=== PATIENT | female | born 1940 | race Caucasian/White ===

== ENCOUNTER 2017-03-14 23:37 | Inpatient (IN) | payer MEDICARE ==
[~2017-03-14] VITALS: Ht 157.5 cm; Wt 104.8 kg
[~2017-03-14 23:37] MED LIST: ALBUTEROL2.5 MG/0.1 IH; AMITRIPTYLINE100 MG PO; ASPIR 8181 MG PO; ATORVASTATIN CA40 MG PO; AVAPRO 150 MG150 M1 PO; BACLOFEN 10MG T10 M1 PO; CALCIUM 600 +1 EAC1 PO; CARVEDILOL12.5 MG PO; CELEBREX 200 M200 MG PO; CHLORTHALIDONE25 MG PO; CLONAZEPAM 0.50.5 M1 PO; CLONAZEPAM 1 MG1 M1 PO; CODITUSSIN AC473 ML PO; COLACE100 MG PO; CYMBALTA60 MG PO; DIGOXIN125 MCG PO; DOXYCYCLINE 10100 MG PO; EFFIENT10 MG PO; ELIQUIS5 MG PO; HYDROCODONE-APA1 TA1 PO; IMDUR 30 MG TAB30 M1 PO; LANOXIN 0.120.125 M1 PO; LOSARTAN POTAS100 MG PO; MUCINEX TA600 MG/TA2 PO; MUCINEX600 MG PO; MYSOLINE50 MG PO; PRAVASTATIN SOD10 MG PO; PREDNISONE 10 M10 MG PO; PRILOSEC 10MG C10 MG PO; PROZAC 20 MG20 M1 PO; PROZAC20 MG PO; PULMICORT0.5 MG/22 INH; Prozac; RISPERDAL M-TA0.5 MG PO; SINGULAIR 10 MG10 M1 PO; TORADOL 10 MG T10 MG PO; TRAMADOL 50 MG50 MG PO; VALIUM5 MG PO; VICODIN ES TAB1 EACH PO; ZPAK PO
[2017-03-14 23:38] VITALS: BP 133/51
[2017-03-15] VITALS (15 sets, daily range): BP systolic 72–156; BP diastolic 41–79
[2017-03-15 00:28] LABS: HEMATOCRIT 37.8 % (37.0-47.0); HEMOGLOBIN 12.6 gm/dL (12.0-15.0); MCH 28.7 pg (26.0-34.0); MCHC 33.3 g/dL (28.0-37.0); MCV 86.2 fL (80.0-100.0); MPV 9.5 fl. (7.2-11.1); NUCLEATED RBCS 0 /100WBC; PLATELET COUNT* 267 thou/uL (150-400); RBC 4.39 mil/uL (4.20-5.00); RDW-CV 14.2 % (10.5-14.5); WBC 26.8 thou/uL (4.0-11.0)
[2017-03-15 00:38] LABS: CALCIUM 8.1 mg/dL (8.5-10.1); CREATININE 1.1 mg/dL (0.6-1.3); POTASSIUM 3.4 mmol/L (3.5-5.1)
[2017-03-15 00:43] LABS: ALBUMIN 2.9 g/dL (3.4-5.0); TOTAL BILIRUBIN 0.5 mg/dL (<0.1-1.0); TOTAL PROTEIN 7.2 g/dL (6.4-8.2)
[2017-03-15 01:33] LABS: ABSOLUTE LYMPHOCYTES 8.3 thou/uL (0.8-5.3); ABSOLUTE MONOCYTES 0.5 thou/uL (0.0-1.2); PLATELET ESTIMATE ADEQUATE
[2017-03-15 01:34] LABS: ESR (SEDRATE) 65 mm/hr (0-30)
[2017-03-15 02:44] LABS: INFLUENZA A ANTIGEN None Detected (None Detect); INFLUENZA B ANTIGEN None Detected (None Detect)
[2017-03-15 03:08] LABS: BF RBC 343704 /mm3; TOTAL CELL COUNT 43223 /mm3
[2017-03-15 03:14] LABS: CLARITY CLOUDY; COLOR RED; TOTAL VOLUME 5 ml
[2017-03-15 03:54] LABS: BF LYMPHOCYTES 3 %; BF MONOCYTES 2 %; BF POLYS 95 %
[2017-03-15 03:55] LABS: SOURCE SYNOVIAL FLUID
[2017-03-15 04:14] LABS: URINE BILIRUBIN NEGATIVE (Negative); URINE BLOOD 3+ (Negative); URINE CLARITY CLEAR; URINE COLOR YELLOW; URINE GLUCOSE-RANDOM NEGATIVE (Negative); URINE KETONES NEGATIVE (Negative); URINE LEUKOCYTES-REFLEX NEGATIVE (Negative); URINE PROTEIN 1+ (Negative); URINE SPECIFIC GRAVITY 1.015 (1.005-1.030); URINE UROBILINOGEN 0.2 E.U./dl (0.2-1.0)
[2017-03-15 04:17] LABS: URINE NITRITE-REFLEX POSITIVE (Negative)
[2017-03-15 04:24] LABS: SQUAMOUS 0-3 Few /LPF (0-3); URINE WBC-REFLEX 0-5 Rare /HPF (0-5)
[2017-03-15 04:25] LABS: CASTS None Seen /LPF (None Seen); CRYSTALS None Seen /LPF (None Seen); MUCUS 0-3 Light strn/LPF (None Seen)
[2017-03-15 08:28] LABS: HEMATOCRIT 34.1 % (37.0-47.0); HEMOGLOBIN 11.4 gm/dL (12.0-15.0); MCH 28.7 pg (26.0-34.0); MCHC 33.4 g/dL (28.0-37.0); MCV 85.7 fL (80.0-100.0); MPV 9.9 fl. (7.2-11.1); RBC 3.97 mil/uL (4.20-5.00); RDW-CV 14.1 % (10.5-14.5); WBC 24.8 thou/uL (4.0-11.0)
[2017-03-15 08:34] LABS: CALCIUM 6.9 mg/dL (8.5-10.1); CREATININE 0.9 mg/dL (0.6-1.3)
[2017-03-15 08:38] LABS: ALBUMIN 2.4 g/dL (3.4-5.0); MAGNESIUM 1.5 mg/dL (1.8-2.4); PHOSPHORUS* 3.4 mg/dL (2.5-4.9); POTASSIUM 2.8 mmol/L (3.5-5.1); TOTAL BILIRUBIN 0.7 mg/dL (<0.1-1.0); TOTAL PROTEIN 6.2 g/dL (6.4-8.2)
--- NOTE | 2017-03-15 13:43 | EKG ---
[place] [address] ELECTROCARDIOGRAM REPORT Name: ABBY KOTHARI Room: [address] ADM IN .R.#: [id number] Admission: 03/15/17 Attend Phys: Franck Kenny MD Discharge: Date of : 40 Report #: [id number] THIS REPORT FOR: //name// [facility] ED Test Date: 2017-03-15 Test Time: 01:57:20 Pat Name: ABBY KOTHARI Department: Room: [address] Gender: F Saw Grinder: AJ : 1940 Requested By: Mariann Burroughs Order Number: [id number] MD: Da Johnson Measurements Intervals [place] Rate: 104 P: [place]: QRS: 76 QRSD: 95 T: QT: 416 QTc: 548 Interpretive Statements Atrial fibrillation Borderline repolarization abnormality Prolonged QT interval Compared to ECG 07/19/2016 17:41:38 Prolonged QT interval now present Electronically Signed On 03-15-2017 13:43:20 ASSOCIATE PROFESSOR OF GEOGRAPHY by Da Johnson [email or web address] <ELECTRONICALLY SIGNED> By: Da Johnson MD, [facility] 03/15/17 1343 0157 0157 Da Johnson MD, [facility] /EPI
[2017-03-15 14:31] LABS: TOTAL CELL COUNT >66000 /mm3
[2017-03-15 14:39] LABS: BF RBC 81675 /mm3
[2017-03-15 14:42] LABS: CLARITY TURBID; COLOR RED; TOTAL VOLUME 15 ml
[2017-03-15 14:57] LABS: BF LYMPHOCYTES 1 %; BF POLYS 99 %; BF TISSUE 25 /100 WBC
--- NOTE | 2017-03-15 15:28 | 2DMMODE ---
[place] [address] 2 D/M-MODE ECHOCARDIOGRAM Name: ABBY KOTHARI Room: [address] IN [facility]#: [id number] Admission: 03/15/17 Attend Phys: Franck Kenny, Discharge: Date of : 40 Date of Service: 03/15/17 1528 Report #: [id number] THIS REPORT FOR: //name// APPROVED REPORT Study performed: 03/15/2017 11:06:34 EXAM: Comprehensive 2D, Doppler, and color-flow Echocardiogram Patient Location: In-Patient Room #: 008 Status: routine BSA: 1.91 HR: 85 bpm BP: 106/52 mmHg Rhythm: Atrial Fibrillation Other Information Study Quality: Good Indications Dyspnea 2D Dimensions LVEF(%): 83.41 (>50%) IVSd: 10.10 (7-11mm) LVOT Diam: 21.74 (18-24mm) LVDd: 38.30 mm PWd: 10.45 (7-11mm) Ascending Ao: 31.06 (22-36mm) LVDs: 18.53 (25-40mm) Aortic Root: 34.25 mm Starr's LVEF: 83.41 % Volumes Left Atrial Volume (Systole) LA ESV Index: 40.50 mL/m2 Aortic Valve AoV Peak Irineo.: 1.71 m/s AO Peak Gr.: 11.76 mmHg LVOT Max P.68 mmHg AO Mean Gr.: 6.59 mmHg LVOT Mean P.51 mmHg LVOT Max V: 0.82 m/s AO V2 VTI: 31.94 cm LVOT Mean V: 0.58 m/s CECELIA (VTI): 1.95 cm2 LVOT V1 VTI: 16.76 cm Mitral Valve MV Decel. Time: 195.30 [place] [address] 2 D/M-MODE ECHOCARDIOGRAM Name: ABBY KOTHARI Room: [address] IN [facility].#: [id number] Admission: 03/15/17 Attend Phys: Franck Kenny, Discharge: Date of : 40 Date of Service: 03/15/17 1528 Report #: [id number] MV PHT: 56.64 ms MVA (PHT): 3.88 cm2 TDI Medial E' Irineo.: 0.11 m/s Lateral E' Irineo.: 0.14 m/s Pulmonary Valve PV Peak Irineo.: 1.04 m/s PV Peak Gr.: 4.32 mmHg Tricuspid Valve TR Peak Gr.: 27.39 mmHg RVSP: 32.00 mmHg Left Ventricle The left ventricle is normal size. There is normal LV segmental wall motion. There is normal left ventricular wall thickness. Left ventricular systolic function is normal. The left ventricular ejection fraction is within the normal range. LVEF is 60-65%. Transmitral Doppler flow pattern suggests restrictive physiology. Right Ventricle The right ventricle is normal size. The right ventricular systolic function is normal. Atria Left atrium is mildly dilated. The right atrium size is normal. Aortic Valve The Aortic valve is sclerotic. Aortic valve is not well visualized. No aortic regurgitation is present. At least Mild aortic stenosis. Mitral Valve The mitral valve is normal in structure. Mild mitral regurgitation. No evidence of mitral valve stenosis. Tricuspid Valve The tricuspid valve is normal in structure. Mild tricuspid regurgitation. The RVSP is 30-35 mmHg. Pulmonic Valve The pulmonary valve is normal in structure. There is no pulmonic [place] [address] 2 D/M-MODE ECHOCARDIOGRAM Name: ABBY KOTHARI Room: [address]#: [id number] Admission: 03/15/17 Attend Phys: Franck Kenny, Discharge: Date of : 40 Date of Service: 03/15/17 1528 Report #: [id number] Great Vessels The aortic root is normal in size. IVC is not well visualized. Pericardium There is no pericardial effusion. <Conclusion> The Aortic valve is sclerotic.Mild aortic stenosis. Aortic valve is not well visualized. No aortic regurgitation is present. Transmitral Doppler flow pattern suggests restrictive physiology. Left atrium is mildly dilated. LVEF is 60-65%. There is normal LV segmental wall motion. <ELECTRONICALLY SIGNED> By: Da Johnson MD, FACC 03/15/17 1528 1528 1528 Da Johnson MD, FACC /INF
[2017-03-15 15:30] LABS: SOURCE R KNEE
[2017-03-15 15:46] LABS: SOURCE L KNEE; SOURCE R KNEE
[2017-03-15 15:59] LABS: BF RBC 21197 /mm3; TOTAL CELL COUNT 104225 /mm3; TOTAL VOLUME 9.5 ml
[2017-03-15 16:07] LABS: CLARITY CLOUDY
[2017-03-15 16:08] LABS: BF MONOCYTES 8 %; BF POLYS 92 %; COLOR YELLOW
[2017-03-15 16:09] LABS: SOURCE KNEE FLUID
[2017-03-15] MEDS ORDERED: APAP650 PO (17:40)
[2017-03-16] VITALS: BP 101/41
[2017-03-16 04:00] VITALS: BP 136/75
[2017-03-16 05:10] LABS: HEMATOCRIT 34.7 % (37.0-47.0); HEMOGLOBIN 11.3 gm/dL (12.0-15.0); MCH 28.4 pg (26.0-34.0); MCHC 32.5 g/dL (28.0-37.0); MCV 87.4 fL (80.0-100.0); MPV 10.7 fl. (7.2-11.1); RBC 3.97 mil/uL (4.20-5.00); RDW-CV 14.7 % (10.5-14.5); WBC 23.8 thou/uL (4.0-11.0)
[2017-03-16 05:26] LABS: ALBUMIN 2.3 g/dL (3.4-5.0); CALCIUM 7.3 mg/dL (8.5-10.1); CREATININE 0.7 mg/dL (0.6-1.3); MAGNESIUM 2.4 mg/dL (1.8-2.4); POTASSIUM 3.7 mmol/L (3.5-5.1); TOTAL BILIRUBIN 1.1 mg/dL (<0.1-1.0); TOTAL PROTEIN 6.4 g/dL (6.4-8.2)
[2017-03-16 08:30] VITALS: BP 120/61
[2017-03-16 11:51] VITALS: BP 117/55
--- NOTE | 2017-03-16 11:56 | CON ---
[address] [address] CONSULTATION Name: ABBY KOTHARI Room: [address] IN .R.#: [id number] Admission: 03/15/17 Attend Phys: Franck Kenny MD Discharge: Date of : 40 Report #: [id number] THIS REPORT FOR: //name// CC: Franck Garcia DATE OF SERVICE: 03/15/2017 INFECTIOUS DISEASE CONSULTATION ATTENDING PHYSICIAN: Franck Kenny MD REASON FOR EVALUATION: Bilateral severe knee pain with hemorrhagic effusions, possible septic arthritis. HISTORY OF PRESENT ILLNESS: Chart reviewed, patient examined. This is a 76-year-old white female with apparent diagnosis of systemic lupus erythematosus, also has fibromyalgia who presented to emergency room with complaints of severe, 9/10 associated bilateral knee pain, which is spontaneous. She awoke, was unable to bear weight. Additionally, he had elevated temperatures, noted to be 102.3 on admission. Did undergo arthrocentesis, was found to have bloody fluid with 343,000 red cells and 43,000 white cells with differential including 95% polymorphonuclear. Cultures are pending. She denies any antecedent injury. She does state she has recent cold. Did take some Jeanette-Ace Plus. It is notable she is on Eliquis. At this point, she denies significant systemic illness. She has not had pulmonary or gastrointestinal related complaints. Appetite has been fair. She was empirically started on vancomycin. Cultures are pending. ALLERGIES: TO PENICILLINS, CEPHALOSPORINS, ERYTHROMYCIN, LISINOPRIL, DILTIAZEM. CURRENT MEDICATIONS: Include fluoxetine, digoxin, docusate sodium, clonazepam, primidone, amitriptyline, aspirin, budesonide inhalational, tramadol, ipratropium and albuterol inhaler, vancomycin, promethazine, p.r.n. analgesics, antiemetics, pantoprazole and montelukast. She is off Levophed; however, required low dose. PAST MEDICAL HISTORY: Systemic lupus erythematous, hypertension, fibromyalgia, atrial fibrillation and bilateral knee replacements. SOCIAL HISTORY: Nonsmoker. No ethanol. FAMILY HISTORY: Noncontributory. REVIEW OF SYSTEMS: [place] [address] CONSULTATION Name: ABBY KOTHARI Room: [address]#: [id number] Admission: 03/15/17 Attend Phys: Franck Kenny MD Discharge: Date of : 40 Report #: [id number] PHYSICAL EXAMINATION: GENERAL: She appears somewhat chronically ill. She is pleasant, alert and cooperative, in topf-ie-gdpyjakp distress, perhaps mildly undernourished. VITAL SIGNS: Temperature 98.5, pulse 80, respirations 23 and blood pressure 104/63. SKIN: Warm and dry. No rashes. HEENT: Unremarkable. NECK: Supple. LUNGS: Diminished breath sounds. HEART: Somewhat irregular. No appreciated murmur. ABDOMEN: Soft, nontender and nondistended. EXTREMITIES: Bilateral knees have evidence of effusion. There are some contused areas. They are tender to palpation. Decreased range of motion. GENITOURINARY: Deferred. RECTAL: Deferred. LABORATORY: Most recent studies: Sodium 137, potassium 2.8, chloride 101, bicarb is 31 and anion gap of 5. BUN and creatinine of 19 and 0.9. Glucose of 128. AST 155 and ALT of 119. Total protein of 6.2 and albumin of 2.3. Estimated GFR of 61. CBC: White count 24.8, H and H of 11.4 and 34.1, platelets of 237. Bilateral knee plain films show prosthesis, nothing for fracture or hardware loosening. Urinalysis: 0-5 white cells, greater than 30 bacteria. Lactic acid 1.9. Cultures pending. Gram stain showed no organisms. Influenza antigen was negative. CRP of 91.0. Sed rate of 65. ASSESSMENT: Bilateral knee hemarthrosis, seem too coincidental to have bilateral septic knees at this point. I suspected spontaneous hemorrhages led to significant amount of inflammation and pain. It is not unreasonable to continue empiric antimicrobial therapy at this point pending the cultures. Discussed with Orthopedic Surgery. Certainly hemarthrosis could explain the fevers. I do not find any other focal evidence of pyogenic infection at this point. We will monitor expectantly. Vancomycin should give us decent skin and soft tissue coverage as well as pulmonary. We will monitor expectantly in the Intensive Care Unit. We will follow. <ELECTRONICALLY SIGNED> By: Beny Castorena MD 03/16/17 1156 1244 1437Jochaz Castorena MD /nt
[2017-03-16 16:00] VITALS: BP 145/71
[2017-03-16 20:00] VITALS: BP 136/62
[2017-03-17] VITALS: BP 115/63
[2017-03-17 04:00] VITALS: BP 118/50
[2017-03-17 04:54] LABS: HEMATOCRIT 31.3 % (37.0-47.0); HEMOGLOBIN 10.5 gm/dL (12.0-15.0); MCHC 33.7 g/dL (28.0-37.0); MCV 86.1 fL (80.0-100.0); MPV 11.3 fl. (7.2-11.1); RBC 3.64 mil/uL (4.20-5.00); RDW-CV 14.8 % (10.5-14.5); WBC 19.8 thou/uL (4.0-11.0)
[2017-03-17 05:09] LABS: CREATININE 0.7 mg/dL (0.6-1.3); MAGNESIUM 2.1 mg/dL (1.8-2.4); POTASSIUM 3.5 mmol/L (3.5-5.1)
[2017-03-17 08:00] VITALS: BP 127/56
[2017-03-17 11:30] VITALS: BP 128/56
[2017-03-17 15:30] VITALS: BP 134/73
[2017-03-17 20:00] VITALS: BP 150/60
[2017-03-18] VITALS: BP 125/60
[2017-03-18 04:04] VITALS: BP 114/62
[2017-03-18 05:06] LABS: HEMATOCRIT 31.4 % (37.0-47.0); HEMOGLOBIN 10.5 gm/dL (12.0-15.0); MCH 29.3 pg (26.0-34.0); MCHC 33.6 g/dL (28.0-37.0); MCV 87.2 fL (80.0-100.0); MPV 10.5 fl. (7.2-11.1); RBC 3.6 mil/uL (4.20-5.00); RDW-CV 14.6 % (10.5-14.5); WBC 16.6 thou/uL (4.0-11.0)
[2017-03-18 05:18] LABS: CALCIUM 7.2 mg/dL (8.5-10.1); CREATININE 0.7 mg/dL (0.6-1.3); MAGNESIUM 1.9 mg/dL (1.8-2.4); POTASSIUM 3.4 mmol/L (3.5-5.1)
[2017-03-18 08:00] VITALS: BP 137/59
[2017-03-18 11:22] VITALS: BP 118/81
[2017-03-18 18:00] VITALS: BP 129/62
[2017-03-19 00:14] VITALS: BP 149/80
[2017-03-19 04:00] VITALS: BP 147/77
[2017-03-19 05:26] LABS: HEMATOCRIT 29.1 % (37.0-47.0); MCH 29.5 pg (26.0-34.0); MCHC 34.5 g/dL (28.0-37.0); MCV 85.3 fL (80.0-100.0); MPV 9.9 fl. (7.2-11.1); RBC 3.41 mil/uL (4.20-5.00); RDW-CV 14.4 % (10.5-14.5); WBC 14.2 thou/uL (4.0-11.0)
[2017-03-19 08:00] VITALS: BP 127/59
[2017-03-19 11:24] VITALS: BP 152/71
--- NOTE | 2017-03-19 12:22 | OP ---
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 SURGERY PERFORMED: Arthrotomy of the right and left knees with incisional debridement of synovium, pulsatile lavage irrigation, sharp dissection and curettage on both with length 20 cm along, width is 10 cm wide down to the bone. The patient did have intraoperative cultures as well on the right and the left knee. The patient had a poly exchange. SURGEON: Mansoor Torres DO BIG DATA DEVELOPER: Dr. Paulson. SECOND TAILOR'S AIDE: Dr. Nichole. ANESTHESIA: General anesthetic. The patient has been on timed antibiotics. GROSS FINDINGS: Prior to surgery, the patient correlated with previous aspiration showing strep pneumoniae in the synovial fluid. The patient had continued pain in both knee regions, right worse than the left. Intraoperative findings correlated with purulence in both knee regions, intact femoral and tibial component as well as patellar component. There was no other concerning signs except hypertrophic synovitis in both knees, right worse than left. PROCEDURE IN DETAIL: She was taken to the operating room and placed on table, given the benefit of general anesthetic. Well-padded tourniquet was placed on the right and the left legs. She underwent a Hibiclens and chlorhexidine prep and sterile draping for right and left knee surgeries. The patient did have a right and left knee extremity drape applied after she was prepped. A timeout was called for the right and left knee surgeries as both would be done simultaneously. At this point in time, the tourniquet was inflated to 250 mL mmHg on the left knee, none was placed on the right. Midline incisions were made on the right and left knee over the previous cicatrix with [place] 20[place] [address] OPERATIVE REPORT Name: SANIYAABBY E Room: [address] IN [facility]#: [id number] Admission: 03/15/17 Attend Phys: Franck Kenny MD Discharge: Date of : 40 Report #: [id number] scalpel through both skin and subcutaneous tissues. A second medial parapatellar capsular incision was made with a new knife blade on each knee. We used separate instruments for each right and the left knees and also separate Bovie suctions, etc. At this point in time, hemostasis was maintained on the right knee. After capsular incision, synovectomy was performed on both sides. Cultures were taken on the right and left knees. At this point in time, the patient's polyethylene was removed on the right and the left knee. Surgery now continued with copious irrigation of normal saline pulsatile lavage irrigation on the right and the left knee, greater than 3000 mL on each. At this point in time, a new polyethylene was seated into the right tibia tray, was a 12.5; on the left with 10. I attempted a 12.5, but the undersurface prong broke off, so I had to put a 10 in with still a stable knee. Once the polyethylene was placed, we placed antibiotic vancomycin and gentamicin beads in the gutters on the right and the left knee regions. The patient then had the capsule closed with 1 Vicryl, 1 TiCron in a [id number]-[id number] fashion. The patient's subcutaneous tissues with 2-0 Monocryl, skin staple closed. Mepilex, soft roll, Ford wrap dressing was applied on the right and the left knee. The patient was transferred off the table, taken to recovery in stable condition. He tolerated the surgery well. <ELECTRONICALLY SIGNED> By: Mansoor Torres DO 03/19/17 1222 1555 1707Mansoor Torres DO /manjula
[2017-03-19 16:27] VITALS: BP 153/67
[2017-03-19 20:10] VITALS: BP 125/41
[2017-03-20 00:51] VITALS: BP 115/54
[2017-03-20 04:00] VITALS: BP 101/47
[2017-03-20 05:20] LABS: HEMOGLOBIN 9.3 gm/dL (12.0-15.0); MCH 28.9 pg (26.0-34.0); MCHC 33.4 g/dL (28.0-37.0); MCV 86.6 fL (80.0-100.0); MPV 9.3 fl. (7.2-11.1); RBC 3.23 mil/uL (4.20-5.00); RDW-CV 14.3 % (10.5-14.5); WBC 12.6 thou/uL (4.0-11.0)
[2017-03-20 05:37] LABS: ALBUMIN 1.7 g/dL (3.4-5.0); CALCIUM 8.3 mg/dL (8.5-10.1); CREATININE 0.6 mg/dL (0.6-1.3); MAGNESIUM 1.5 mg/dL (1.8-2.4); POTASSIUM 3.4 mmol/L (3.5-5.1); TOTAL BILIRUBIN 0.5 mg/dL (<0.1-1.0); TOTAL PROTEIN 5.5 g/dL (6.4-8.2)
[2017-03-20 08:00] VITALS: BP 117/63
[2017-03-20 13:17] VITALS: BP 112/64
[2017-03-20 13:51] LABS: AMYLASE 26 U/L (25-115); LIPASE 76 U/L (73-393)
[2017-03-20 16:30] VITALS: BP 128/73
[2017-03-20 18:05] LABS: MAGNESIUM 1.6 mg/dL (1.8-2.4); POTASSIUM 3.4 mmol/L (3.5-5.1)
[2017-03-20 20:00] VITALS: BP 112/69
[2017-03-21] VITALS: BP 120/68
[2017-03-21 04:12] VITALS: BP 108/42
[2017-03-21 05:00] LABS: HEMATOCRIT 29.4 % (37.0-47.0); HEMOGLOBIN 9.7 gm/dL (12.0-15.0); MCH 28.5 pg (26.0-34.0); MCHC 32.9 g/dL (28.0-37.0); MCV 86.6 fL (80.0-100.0); MPV 9.2 fl. (7.2-11.1); RBC 3.4 mil/uL (4.20-5.00); RDW-CV 14.3 % (10.5-14.5); WBC 17.3 thou/uL (4.0-11.0)
[2017-03-21 05:26] LABS: ALBUMIN 1.9 g/dL (3.4-5.0); CALCIUM 8.7 mg/dL (8.5-10.1); CREATININE 0.5 mg/dL (0.6-1.3); POTASSIUM 3.6 mmol/L (3.5-5.1); TOTAL BILIRUBIN 0.5 mg/dL (<0.1-1.0); TOTAL PROTEIN 5.8 g/dL (6.4-8.2)
[2017-03-21 08:00] VITALS: BP 125/72
[2017-03-21 11:45] VITALS: BP 133/59
[2017-03-21 16:05] VITALS: BP 129/54
[2017-03-21 20:00] VITALS: BP 120/49
[2017-03-22] VITALS: BP 104/56
[2017-03-22 03:00] VITALS: BP 122/61
[2017-03-22 05:12] LABS: HEMATOCRIT 24.9 % (37.0-47.0); HEMOGLOBIN 8.5 gm/dL (12.0-15.0); MCH 29.2 pg (26.0-34.0); MCHC 34.1 g/dL (28.0-37.0); MCV 85.5 fL (80.0-100.0); MPV 9.1 fl. (7.2-11.1); RBC 2.91 mil/uL (4.20-5.00); RDW-CV 14.4 % (10.5-14.5); WBC 15.6 thou/uL (4.0-11.0)
[2017-03-22 05:19] LABS: CALCIUM 8.6 mg/dL (8.5-10.1); CREATININE 0.6 mg/dL (0.6-1.3); MAGNESIUM 1.7 mg/dL (1.8-2.4); POTASSIUM 3.5 mmol/L (3.5-5.1)
[2017-03-22 09:30] VITALS: BP 118/69
[2017-03-22 11:46] VITALS: BP 108/55
[2017-03-22 15:54] VITALS: BP 132/72
[2017-03-23] VITALS: BP 111/57
[2017-03-23 05:29] LABS: HEMATOCRIT 25.8 % (37.0-47.0); HEMOGLOBIN 8.8 gm/dL (12.0-15.0); MCH 29.3 pg (26.0-34.0); MCHC 34.3 g/dL (28.0-37.0); MCV 85.4 fL (80.0-100.0); MPV 8.7 fl. (7.2-11.1); RBC 3.02 mil/uL (4.20-5.00); RDW-CV 14.2 % (10.5-14.5); WBC 14.8 thou/uL (4.0-11.0)
[2017-03-23 05:33] LABS: CALCIUM 8.5 mg/dL (8.5-10.1); CREATININE 0.6 mg/dL (0.6-1.3); MAGNESIUM 1.7 mg/dL (1.8-2.4); POTASSIUM 3.9 mmol/L (3.5-5.1)
[2017-03-23 09:04] VITALS: BP 133/81
[2017-03-23 15:10] VITALS: BP 133/81
[2017-03-23] MEDS ORDERED: MELATONIN10 M1 PO (15:32)
[2017-03-23] MEDS ORDERED: MILK OF MA2400 MG/10 PO (15:33)
[2017-03-23] MEDS ORDERED: MIRALAX17 GM PO (15:35)
[2017-03-23] MEDS ORDERED: FLEET ENEMA133 ML RECTAL (15:36)
[2017-03-23] MEDS ORDERED: ROCEPHIN 11 GM/1001 IV (15:44)
== END 2017-03-23 16:27 | DRG 853 ==
LOC: M.ERS 23:37 → M.ICU 03-15 03:52 → M.TBA-ER 03-15 03:52 → M.2W 03-15 05:02 → M.ICU 03-15 06:27 → M.2W 03-15 18:39
PROVIDERS: Emergency Medicine; Family Medicine; Orthopaedic Surgery; Specialist; ADMIT Internal Medicine
DX: A40.3 Sepsis due to Streptococcus pneumoniae (principal); R65.21 Severe sepsis with septic shock; N17.0 Acute kidney failure with tubular necrosis; J96.01 Acute respiratory failure with hypoxia; M00.9 Pyogenic arthritis, unspecified; Z68.41 Body mass index [BMI] 40.0-44.9, adult; K56.609 Unspecified intestinal obstruction, unspecified as to partial versus complete obstruction; M25.062 Hemarthrosis, left knee; M25.061 Hemarthrosis, right knee; M32.9 Systemic lupus erythematosus, unspecified; I10 Essential (primary) hypertension; I48.91 Unspecified atrial fibrillation; Z96.649 Presence of unspecified artificial hip joint; Z96.653 Presence of artificial knee joint, bilateral; K75.9 Inflammatory liver disease, unspecified; E66.9 Obesity, unspecified; K59.00 Constipation, unspecified; Z79.899 Other long term (current) drug therapy; Z79.82 Long term (current) use of aspirin; Z88.1 Allergy status to other antibiotic agents; Z88.0 Allergy status to penicillin; Z88.8 Allergy status to other drugs, medicaments and biological substances

== ENCOUNTER 2017-04-20 17:02 | Emergency (ER) | payer MEDICARE ==
[~2017-04-20] VITALS: Ht 157.5 cm; Wt 72.6 kg
[~2017-04-20 17:02] MED LIST changes: +APAP650 PO; +FLEET ENEMA133 ML RECTAL; +MELATONIN10 M1 PO; +MILK OF MA2400 MG/10 PO; +MIRALAX17 GM PO; +ROCEPHIN 11 GM/1001 IV
[2017-04-20] MEDS ORDERED: ELIQUIS2.5 MG PO (17:13)
[2017-04-20] MEDS ORDERED: HYDROCODONE-AP1 EAC6 PO (18:14)
[2017-04-20 19:12] VITALS: BP 132/70
== END 2017-04-20 19:13 | disposition home or self-care (01) ==
LOC: M.ERS 17:02
DX: S32.000A Wedge compression fracture of unspecified lumbar vertebra, initial encounter for closed fracture (principal); M54.5 Low back pain; I10 Essential (primary) hypertension; I48.91 Unspecified atrial fibrillation; Z88.1 Allergy status to other antibiotic agents; Z88.0 Allergy status to penicillin; Z88.8 Allergy status to other drugs, medicaments and biological substances; W01.10XA Fall on same level from slipping, tripping and stumbling with subsequent striking against unspecified object, initial encounter; Y93.89 Activity, other specified; Y92.89 Other specified places as the place of occurrence of the external cause; Y99.8 Other external cause status

== ENCOUNTER 2017-04-30 15:47 | Emergency (ER) | payer MEDICARE ==
[~2017-04-30] VITALS: Ht 157.5 cm; Wt 89.4 kg
[~2017-04-30 15:47] MED LIST changes: +ELIQUIS2.5 MG PO; +HYDROCODONE-AP1 EAC6 PO
[2017-04-30] MEDS ORDERED: CODITUSSIN AC473 ML PO (16:04)
[2017-04-30] MEDS ORDERED: DIGOXIN125 MCG PO (16:05)
[2017-04-30] MEDS ORDERED: MUCINEX600 MG PO (16:06)
[2017-04-30] MEDS ORDERED: MYSOLINE50 MG PO (16:07)
[2017-04-30] MEDS ORDERED: HYDROCODON-ACE1 EAC7 PO (16:09)
[2017-04-30] MEDS ORDERED: OXYCODONE HCL E10 MG PO (16:10)
[2017-04-30] MEDS ORDERED: LORCET PLUS 7.1 EACH PO (17:41)
[2017-04-30] MEDS ORDERED: COLACE100 MG PO (17:41)
[2017-04-30 17:47] VITALS: BP 106/50
== END 2017-04-30 17:48 | disposition home or self-care (01) ==
LOC: M.ERS 15:47
DX: S22.31XA Fracture of one rib, right side, initial encounter for closed fracture (principal); S39.012A Strain of muscle, fascia and tendon of lower back, initial encounter; I10 Essential (primary) hypertension; I48.91 Unspecified atrial fibrillation; M19.90 Unspecified osteoarthritis, unspecified site; M79.7 Fibromyalgia; R10.819 Abdominal tenderness, unspecified site; Z88.0 Allergy status to penicillin; Z88.8 Allergy status to other drugs, medicaments and biological substances; Z88.1 Allergy status to other antibiotic agents; W19.XXXA Unspecified fall, initial encounter; X58.XXXA Exposure to other specified factors, initial encounter; Y93.89 Activity, other specified; Y92.89 Other specified places as the place of occurrence of the external cause; Y99.8 Other external cause status

== ENCOUNTER → 2017-08-03 | Outpatient (CLI) | payer MEDICARE ==
[~2017-08-03] MED LIST changes: +HYDROCODON-ACE1 EAC7 PO; +LEVAQUIN 500 M500 MG PO; +LORCET PLUS 7.1 EACH PO; +OXYCODONE HCL E10 MG PO; +PREDNISONE50 MG PO
== END ==
LOC: M.MRI 16:10
DX: S22.080A Wedge compression fracture of T11-T12 vertebra, initial encounter for closed fracture (principal); M47.894 Other spondylosis, thoracic region; M47.896 Other spondylosis, lumbar region; M12.88 Other specific arthropathies, not elsewhere classified, other specified site; G89.29 Other chronic pain; X58.XXXA Exposure to other specified factors, initial encounter; Y93.89 Activity, other specified; Y92.89 Other specified places as the place of occurrence of the external cause; Y99.8 Other external cause status

== ENCOUNTER 2017-12-14 20:37 | Emergency (ER) | payer MEDICARE ==
[~2017-12-14] VITALS: Ht 160 cm; Wt 79.4 kg
[~2017-12-14 20:37] MED LIST changes: -LEVAQUIN 500 M500 MG PO; -PREDNISONE50 MG PO
[2017-12-14 21:11] LABS: ABSOLUTE BASOPHILS 0.2 thou/uL (0.0-0.2); ABSOLUTE EOSINOPHILS 0.3 thou/uL (0.0-0.7); ABSOLUTE LYMPHOCYTES 6.5 thou/uL (0.8-5.3); ABSOLUTE MONOCYTES 1.2 thou/uL (0.0-1.2); ABSOLUTE NEUTROPHILS 5.3 thou/uL (1.6-8.1); BASOPHILS 1.4 %; EOSINOPHILS 2.4 %; HEMOGLOBIN 13.9 gm/dL (12.0-15.0); LYMPHOCYTES 48.4 %; MCH 28.6 pg (26.0-34.0); MCV 86.8 fL (80.0-100.0); MONOCYTES 8.7 %; MPV 9.7 fl. (7.2-11.1); NUCLEATED RBCS 0 /100WBC; PLATELET COUNT* 223 thou/uL (150-400); POLYS 39.1 %; RBC 4.84 mil/uL (4.20-5.00); RDW-CV 15.3 % (10.5-14.5); WBC 13.5 thou/uL (4.0-11.0)
[2017-12-14 21:18] LABS: ANION GAP < 0 mmol/L (7-16); BUN 17 mg/dL (7-18); CALCIUM 8.6 mg/dL (8.5-10.1); CHLORIDE 97 mmol/L (98-107); CO2 41 mmol/L (21-32); CREATININE 0.9 mg/dL (0.6-1.3); GLUCOSE 102 mg/dL (70-99); POTASSIUM 3.5 mmol/L (3.5-5.1); SODIUM 137 mmol/L (136-145)
[2017-12-14 21:27] LABS: ALBUMIN 3.1 g/dL (3.4-5.0); ALKALINE PHOSPHATASE 91 U/L (46-116); SGOT 31 U/L (15-37); SGPT 29 U/L (30-65); TOTAL BILIRUBIN 0.3 mg/dL (<0.1-1.0); TOTAL PROTEIN 7.1 g/dL (6.4-8.2); TROPONIN-I LEVEL <0.06 ng/mL (<0.06)
[2017-12-14 21:32] LABS: BE 8.3 mmol/L (-2 to +3); HCO3 32.4 mmol/L (22.0-26.0); PCO2 42.6 mmHg (35.0-45.0); PO2 65.5 mmHg (75.0-100.0); pH 7.499 (7.340-7.450)
[2017-12-14] MEDS ORDERED: LEVAQUIN 500 M500 MG PO (22:28)
[2017-12-14] MEDS ORDERED: PREDNISONE50 MG PO (22:28)
[2017-12-14 22:35] VITALS: BP 131/84
--- NOTE | 2017-12-15 16:40 | EKG ---
[place] [address] ELECTROCARDIOGRAM REPORT Name: ABBY KOTHARI [id number] Admission: 12/14/17 Attend Phys: Discharge: 12/14/17 Date of : 40 Report #: [id number] THIS REPORT FOR: //name// [facility] ED Test Date: 2017-12-14 Test Time: 21:11:26 Pat Name: ABBY KOTHARI Department: Room: Gender: F Preschool Aide: : 1940 Requested By: Kimmy Vasquez Order Number: [id number] MD: Sushant Perez Measurements Intervals [place] Rate: 90 P: [place]: QRS: 67 QRSD: 58 T: 59 QT: 449 QTc: 550 Interpretive Statements Atrial fibrillation Borderline repolarization abnormality Prolonged QT interval Electronically Signed On 12-15-2017 16:39:49 CDT by Sushant Perez [email or web address] <ELECTRONICALLY SIGNED> By: Sushant Perez MD, [facility] 12/15/17 1639 2111 10 Sushant Perez MD, FACC /EPI
== END 2017-12-14 22:35 | disposition home or self-care (01) ==
LOC: M.ERS 20:37
PROVIDERS: Personal Emergency Response Attendant
DX: J40 Bronchitis, not specified as acute or chronic (principal); M32.9 Systemic lupus erythematosus, unspecified; I10 Essential (primary) hypertension; I48.91 Unspecified atrial fibrillation; M79.7 Fibromyalgia; M19.90 Unspecified osteoarthritis, unspecified site; E66.01 Morbid (severe) obesity due to excess calories; Z68.31 Body mass index [BMI] 31.0-31.9, adult; Z96.659 Presence of unspecified artificial knee joint; Z96.649 Presence of unspecified artificial hip joint; Z88.1 Allergy status to other antibiotic agents; Z88.0 Allergy status to penicillin; Z88.8 Allergy status to other drugs, medicaments and biological substances

== ENCOUNTER 2018-03-15 14:23 | Emergency (ER) | payer MEDICARE ==
[~2018-03-15] VITALS: Ht 157.5 cm; Wt 74.8 kg
[~2018-03-15 14:23] MED LIST changes: +LEVAQUIN 500 M500 MG PO; +PREDNISONE50 MG PO
[2018-03-15] MEDS ORDERED: NORCO 5-325 TA1 EACH PO (16:51)
[2018-03-15 17:23] VITALS: BP 135/69
== END 2018-03-15 17:24 | disposition home or self-care (01) ==
LOC: M.ERS 14:23
DX: S22.42XA Multiple fractures of ribs, left side, initial encounter for closed fracture (principal); S16.1XXA Strain of muscle, fascia and tendon at neck level, initial encounter; S00.83XA Contusion of other part of head, initial encounter; M32.9 Systemic lupus erythematosus, unspecified; I10 Essential (primary) hypertension; M79.7 Fibromyalgia; I48.91 Unspecified atrial fibrillation; M19.90 Unspecified osteoarthritis, unspecified site; E66.9 Obesity, unspecified; Z68.30 Body mass index [BMI] 30.0-30.9, adult; W01.0XXA Fall on same level from slipping, tripping and stumbling without subsequent striking against object, initial encounter; Y93.89 Activity, other specified; Y92.89 Other specified places as the place of occurrence of the external cause; Y99.8 Other external cause status

== ENCOUNTER 2019-02-09 12:40 | Emergency (ER) | payer MEDICARE ==
[~2019-02-09] VITALS: Ht 157.5 cm; Wt 71.7 kg
[~2019-02-09 12:40] MED LIST changes: +NORCO 5-325 TA1 EACH PO
[2019-02-09] MEDS ORDERED: LIDODERM1 EACH TRANSDERM (14:03)
[2019-02-09] MEDS ORDERED: NORCO 5-325 TA1 EAC1 PO (14:08)
[2019-02-09 14:16] VITALS: BP 101/56
== END 2019-02-09 14:17 | disposition home or self-care (01) ==
LOC: M.ERS 12:40
DX: R10.2 Pelvic and perineal pain (principal); M79.651 Pain in right thigh; M25.551 Pain in right hip; M79.7 Fibromyalgia; I48.91 Unspecified atrial fibrillation; M19.90 Unspecified osteoarthritis, unspecified site; M32.9 Systemic lupus erythematosus, unspecified; Z88.1 Allergy status to other antibiotic agents; Z88.0 Allergy status to penicillin; Z88.8 Allergy status to other drugs, medicaments and biological substances

== ENCOUNTER 2020-11-02 13:14 | Emergency (ER) | payer MEDICARE ==
[~2020-11-02] VITALS: Ht 157.5 cm; Wt 71.2 kg
[~2020-11-02 13:14] MED LIST changes: +LIDODERM1 EACH TRANSDERM; +NORCO 5-325 TA1 EAC1 PO
[2020-11-02] MEDS ORDERED: HYDROCODON-ACE1 EAC7 PO (14:58)
[2020-11-02 15:32] VITALS: BP 101/64
== END 2020-11-02 15:33 | disposition home or self-care (01) ==
LOC: M.ERS 13:14
DX: S42.212A Unspecified displaced fracture of surgical neck of left humerus, initial encounter for closed fracture (principal); I10 Essential (primary) hypertension; M79.7 Fibromyalgia; I48.91 Unspecified atrial fibrillation; M19.90 Unspecified osteoarthritis, unspecified site; Z79.891 Long term (current) use of opiate analgesic; Z79.51 Long term (current) use of inhaled steroids; Z79.899 Other long term (current) drug therapy; Z88.1 Allergy status to other antibiotic agents; Z88.0 Allergy status to penicillin; Z88.8 Allergy status to other drugs, medicaments and biological substances; W18.31XA Fall on same level due to stepping on an object, initial encounter; Y93.89 Activity, other specified; Y92.89 Other specified places as the place of occurrence of the external cause; Y99.8 Other external cause status

== ENCOUNTER 2020-11-06 17:19 | Inpatient (IN) | payer MEDICARE ==
[~2020-11-06] VITALS: Ht 157.5 cm; Wt 75.3 kg
[2020-11-06 17:55] VITALS: BP 72/39
[2020-11-06 18:26] LABS: ABSOLUTE BASOPHILS 0.1 thou/uL (0.0-0.2); ABSOLUTE EOSINOPHILS 0.1 thou/uL (0.0-0.7); ABSOLUTE LYMPHOCYTES 4.2 thou/uL (0.8-5.3); ABSOLUTE NEUTROPHILS 5.2 thou/uL (1.6-8.1); BASOPHILS 1.1 %; EOSINOPHILS 1.2 %; HEMATOCRIT 34.7 % (37.0-47.0); HEMOGLOBIN 11.7 gm/dL (12.0-15.0); LYMPHOCYTES 39.1 %; MCH 30.4 pg (26.0-34.0); MCHC 33.7 g/dL (28.0-37.0); MCV 90.1 fL (80.0-100.0); MONOCYTES 9.8 %; MPV 9.7 fl. (7.2-11.1); NUCLEATED RBCS 0 /100WBC; PLATELET COUNT* 219 thou/uL (150-400); POLYS 48.8 %; RBC 3.85 mil/uL (4.20-5.00); RDW-CV 13.4 % (10.5-14.5); WBC 10.7 thou/uL (4.0-11.0)
[2020-11-06 18:36] LABS: CALCIUM 8.6 mg/dL (8.5-10.1); CREATININE 1.2 mg/dL (0.6-1.3); POTASSIUM 3.7 mmol/L (3.5-5.1)
[2020-11-06 18:41] LABS: ALBUMIN 3.1 g/dL (3.4-5.0); TOTAL BILIRUBIN 0.5 mg/dL (<0.1-1.0); TOTAL PROTEIN 6.7 g/dL (6.4-8.2)
[2020-11-06 22:00] VITALS: BP 126/58
[2020-11-07] VITALS: BP 90/53
[2020-11-07 01:09] LABS: ABSOLUTE BASOPHILS 0.1 thou/uL (0.0-0.2); ABSOLUTE EOSINOPHILS 0.1 thou/uL (0.0-0.7); ABSOLUTE LYMPHOCYTES 3.6 thou/uL (0.8-5.3); ABSOLUTE NEUTROPHILS 4.5 thou/uL (1.6-8.1); BASOPHILS 0.9 %; EOSINOPHILS 0.8 %; HEMATOCRIT 30.9 % (37.0-47.0); HEMOGLOBIN 10.6 gm/dL (12.0-15.0); LYMPHOCYTES 38.9 %; MCH 30.9 pg (26.0-34.0); MCHC 34.3 g/dL (28.0-37.0); MONOCYTES 11.2 %; MPV 9.2 fl. (7.2-11.1); NUCLEATED RBCS 0 /100WBC; PLATELET COUNT* 200 thou/uL (150-400); POLYS 48.2 %; RBC 3.44 mil/uL (4.20-5.00); RDW-CV 13.6 % (10.5-14.5); WBC 9.3 thou/uL (4.0-11.0)
[2020-11-07 01:21] LABS: CALCIUM 7.7 mg/dL (8.5-10.1); POTASSIUM 3.2 mmol/L (3.5-5.1)
[2020-11-07 05:05] VITALS: BP 108/50
[2020-11-07 08:00] VITALS: BP 119/61
--- NOTE | 2020-11-07 09:45 | EKG ---
[place] [address] ELECTROCARDIOGRAM REPORT Name: ABBY KOTHARI Room: [address] ADM IN .R.#: [id number] Admission: 11/06/20 Attend Phys: Heriberto Chambers, Discharge: Date of : 40 Date of Service: 11/06/201909 Report #: [id number] THIS REPORT FOR: //name// [facility] ED Test Date: 2020-11-06 Test Time: 19:10:22 Pat Name: ABBY KOTHARI Department: Room: [facility] Gender: F Mixer And Blender: RACHNA : 1940 Requested By: Nella Gonsales Order Number: [id number] MD: Sushant Perez Measurements Intervals [place] Rate: 73 P: [place]: QRS: 71 QRSD: 55 T: 117 QT: 470 QTc: 518 Interpretive Statements Atrial fibrillation Ventricular premature complex Abnormal R-wave progression, early transition Nonspecific T abnrm, anterolateral leads Borderline prolonged QT interval Compared to ECG 12/14/2017 21:11:26 Ventricular premature complex(es) now present Electronically Signed On 11-07-2020 9:45:11 CDT by Sushant Perez [email or web address] <ELECTRONICALLY SIGNED> By: Sushant Perez MD, [facility] 11/07/20 0945 09 09 Sushant Perez MD, [facility] /EPI
[2020-11-07 12:00] VITALS: BP 118/67
[2020-11-07 16:00] VITALS: BP 97/65
[2020-11-07 20:00] VITALS: BP 113/50
[2020-11-08 01:17] VITALS: BP 147/74
[2020-11-08 04:21] LABS: CALCIUM 7.7 mg/dL (8.5-10.1); CREATININE 0.7 mg/dL (0.6-1.3)
[2020-11-08 04:39] LABS: ABSOLUTE BASOPHILS 0.1 thou/uL (0.0-0.2); ABSOLUTE EOSINOPHILS 0.4 thou/uL (0.0-0.7); ABSOLUTE LYMPHOCYTES 4.4 thou/uL (0.8-5.3); ABSOLUTE MONOCYTES 1.1 thou/uL (0.0-1.2); ABSOLUTE NEUTROPHILS 3.3 thou/uL (1.6-8.1); BASOPHILS 0.6 %; EOSINOPHILS 4.1 %; HEMATOCRIT 31.3 % (37.0-47.0); HEMOGLOBIN 10.9 gm/dL (12.0-15.0); LYMPHOCYTES 47.3 %; MCH 31.2 pg (26.0-34.0); MCHC 34.9 g/dL (28.0-37.0); MCV 89.2 fL (80.0-100.0); MONOCYTES 12.3 %; MPV 9.6 fl. (7.2-11.1); NUCLEATED RBCS 0 /100WBC; PLATELET COUNT* 214 thou/uL (150-400); POLYS 35.7 %; RBC 3.51 mil/uL (4.20-5.00); RDW-CV 13.6 % (10.5-14.5); WBC 9.3 thou/uL (4.0-11.0)
[2020-11-08 04:40] VITALS: BP 115/56
[2020-11-08 07:50] VITALS: BP 119/58
[2020-11-08 12:00] VITALS: BP 120/51
[2020-11-08] MEDS ORDERED: NORCO5 PO (14:20)
[2020-11-08] MEDS ORDERED: TRAMADOL 50 MG50 MG PO (14:20)
[2020-11-08 14:26] VITALS: BP 120/51
[2020-11-08] MEDS ORDERED: VIBRAMYCIN 100100 MG PO (14:29)
== END 2020-11-08 15:19 | disposition home health service (06) | DRG 543 ==
LOC: M.ERS 17:19 → M.2W 19:52 → M.TBA-ER 19:52 → M.2W 22:08
PROVIDERS: Physician Assistant; ADMIT Internal Medicine; ATTEND Internal Medicine
DX: M80.012A Age-related osteoporosis with current pathological fracture, left shoulder, initial encounter for fracture (principal); I48.20 Chronic atrial fibrillation, unspecified; S22.42XA Multiple fractures of ribs, left side, initial encounter for closed fracture; S42.295A Other nondisplaced fracture of upper end of left humerus, initial encounter for closed fracture; E44.1 Mild protein-calorie malnutrition; I95.9 Hypotension, unspecified; I10 Essential (primary) hypertension; M19.90 Unspecified osteoarthritis, unspecified site; W18.39XA Other fall on same level, initial encounter; Z96.659 Presence of unspecified artificial knee joint; M79.7 Fibromyalgia; Z20.822 Contact with and (suspected) exposure to COVID-19; Z96.641 Presence of right artificial hip joint; Z88.0 Allergy status to penicillin; Z79.899 Other long term (current) drug therapy; Z88.8 Allergy status to other drugs, medicaments and biological substances; Z88.1 Allergy status to other antibiotic agents; Y93.89 Activity, other specified; Y92.89 Other specified places as the place of occurrence of the external cause; Y99.8 Other external cause status; Z68.30 Body mass index [BMI] 30.0-30.9, adult